=== PATIENT | female | born 1960 | race Caucasian/White ===

== ENCOUNTER 2020-06-27 21:44 | Emergency (ER) | payer OTHER, SELFPAY ==
--- NOTE | ~2020-06-27 | XR_ITS ---
EXAMINATION: LEFT ANKLE LEFT KNEE CLINICAL INFORMATION: Pain and bruising and medial malleolus COMPARISON: None TECHNIQUE: 3 views left ankle, 4 views left knee FINDINGS: Ankle: There is some mild soft tissue swelling at the medial malleolus. On the AP view, there is a lucency which appears to run through the malleolus and a horizontal fashion. A cortical break is not seen en face, highly suspect of a fracture. If the patient is symptomatic in this area, CT scan could be used due to confirm this. No other questionable fractures are seen. Left knee: No fracture is seen. An anterolisthesis is noted superior patellar insertion site. No joint effusion is seen. XR/XR knee LT 4V IMPRESSION: Question of fracture of medial malleolus. CT scan of the ankle could be performed to confirm this.
--- NOTE | ~2020-06-27 | XR_ITS ---
EXAMINATION: LEFT ANKLE LEFT KNEE CLINICAL INFORMATION: Pain and bruising and medial malleolus COMPARISON: None TECHNIQUE: 3 views left ankle, 4 views left knee FINDINGS: Ankle: There is some mild soft tissue swelling at the medial malleolus. On the AP view, there is a lucency which appears to run through the malleolus and a horizontal fashion. A cortical break is not seen en face, highly suspect of a fracture. If the patient is symptomatic in this area, CT scan could be used due to confirm this. No other questionable fractures are seen. Left knee: No fracture is seen. An anterolisthesis is noted superior patellar insertion site. No joint effusion is seen. XR/XR ankle LT min 3V IMPRESSION: Question of fracture of medial malleolus. CT scan of the ankle could be performed to confirm this.
[2020-06-27 21:58] VITALS: BP 178/76; PULSE 100; RESP 20; TEMP 36.6; O2SAT 99; BMI 30.1
[2020-06-28] MEDS: Acetaminophen 325 MG TABLET 975 MG PO (00:03)
--- NOTE | 2020-06-28 00:04 | ED_ITS ---
HPI - Extremity Injury (Lower) General Chief Complaint: Extremity Injury, Lower Stated Complaint: Fall Time Seen by Provider: 06/27/20 23:08 Source: patient Mode of arrival: ambulatory History of Present Illness HPI Narrative: This is a 60-year-old female who states that she ?missed a step? resulting in what sounds like an eversion injury to the left ankle and striking her left knee with a fall not associated with head strike or loss of consciousness. Patient denies any numbness or tingling to the toes but states that when she attempts to move the left ankle she feels it radiating up into the left lower leg. Related Data Allergies Allergy/AdvReac Type Severity Reaction Status Date / Time nitrofurantoin Allergy Unknown Verified 06/27/20 23:30 [From Macrodantin] Review of Systems Review of Systems: Pertinent positives and negatives as stated in HPI 10 point review systems is otherwise negative. [facility] Past Medical History Source: nursing notes reviewed Social History Social History Alcohol intake: never Smoked in Last 30 Days: No Use of substances other than those prescribed or required for medical reasons: No Advance Directives: No Advance Directives Information Provided: Yes Physical Exam Vital Signs: Vital Signs: Last Vital Signs Temp 97.9 F 06/27/20 21:58 Pulse 100 06/27/20 21:58 Resp 20 06/27/20 21:58 BP 178/76 H 06/27/20 21:58 Pulse Ox 99 06/27/20 21:58 Body Mass Index 30.1 VITAL SIGNS: Reviewed. GENERAL: Well developed, well nourished, in no acute distress. OROPHARYNX: no oral lesions noted, posterior pharynx clear NECK: Supple, no adenopathy LUNGS: Normal breath sounds. No adventitious sounds or accessory muscle use. SpO2<99> CARDIOVASCULAR: Regular rate and rhythm without noted murmurs, no JVD or lower extremity edema. ABDOMEN: Soft, non-tender, non-distended with bowel sounds. No rigidity. No g uarding. No palpable masses or hernias noted LEFT LOWER EXTREMITY: THERE IS A NOTED ECCHYMOTIC SITES SEE THE LATERAL ASPECT OF THE LEFT KNEE, WELL ECCHYMOSIS WITHOUT SWELLING TO THE MEDIAL MALL EOLUS, NEGATIVE MIDFOOT TENDERNESS, CAPILLARY REFILL LESS THAN 3 SECONDS, OTHERWISE NEUROVASCULARLY INTACT. THERE IS NO ANTERIOR TIBIAL PAIN ON PALPATION AND NO CALCANEAL PAIN ON PALPATION, THE LEFT KNEE IS WITHOUT SWELLING AND RANGE OF MOTION IS INTACT. SKIN: Inspection of the skin reveals no rashes NEUROLOGIC: Alert and oriented x 4. Course Course Course Narrative: This is a 60-year-old female with history and clinical presentation suggestive of left ankle fracture but doubt acute knee injury other than contusion. On review imaging there is evidence medial malleolus fracture and left knee imaging is without acute findings. Patient was provided with combination analgesics and orthopedic service was consulted. I discussed case with orthopedics who agrees with patient being placed in a walking boot as well as crutch training with a stipulation of touch toe only and patient will follow-up in the orthopedic office by calling them tomorrow morning. Discharge Plan Discharge Clinical Impression: Fracture of medial malleolus Qualifiers: Encounter type: initial encounter Fracture type: closed Fracture alignment: nondisplaced Laterality: left Qualified Code(s): S82.55XA - Nondisplaced fracture of medial malleolus of left tibia, initial encounter for closed fracture Patient Disposition: Home, Self-Care Instructions: Ankle Fracture (ED), Crutch Instructions (ED), Walking Boot (ED) Additional Instructions: 1. Tylenol 1000 mg, orally, every 6 hours as needed for pain control. Do not exceed 4000 mg within 24 hours. 2. Ibuprofen 400 mg, orally with milk or food, every 6 hours as needed for pain control. 3. Application of ice to unexposed skin, 10-15 minutes, 3 to 4 times a day. 4. Must use crutches for ambulation and only toe-touch weight to the left foot. 5. You have been provided with a referral as listed below please call the orth opedic office in the morning. Return to the emergency department if you experience any acute worsening of your symptoms. Referrals: Michael Olvera MD [Primary Care Provider] - 2 days (Diagnosed with left medial malleolus fracture and discharged for follow-up with Orthopedics with a walking boot and crutches.) Helga Acevedo MD [Physician] - 2 days (Please evaluate patient with left medial malleolus fracture, closed/nondisplaced. Patient was discharged from ER with walking boot and crutches as discussed with orthopedic PA.)
[2020-06-28 02:00] VITALS: BP 153/82; PULSE 87; RESP 18; O2SAT 98
== END 2020-06-28 03:43 | disposition home or self-care (01) ==
PROVIDERS: Emergency Provider Student in an Organized Health Care Education/Training Program; PCP Internal Medicine
DX: S82.55XA Nondisplaced fracture of medial malleolus of left tibia, initial encounter for closed fracture (principal); W10.8XXA Fall (on) (from) other stairs and steps, initial encounter; Y93.89 Activity, other specified; Y92.018 Other place in single-family (private) house as the place of occurrence of the external cause; Y99.9 Unspecified external cause status
CPT/HCPCS: 73564; 73610; 99283; 99284

== ENCOUNTER → 2020-06-29 08:03 | Outpatient (BNVA) | payer OTHER, SELFPAY | PROVIDERS: PCP Internal Medicine; Visit Provider Physician Assistant ==

== ENCOUNTER 2020-07-24 08:13 | Outpatient (REF) | payer OTHER, SELFPAY ==
--- NOTE | ~2020-07-24 | XR_ITS ---
EXAMINATION: XR ANKLE, LEFT CLINICAL INFORMATION: Medial malleolus fracture COMPARISON: Radiographs 06/27/2020 TECHNIQUE: AP, lateral, and mortise views of the left ankle. FINDINGS: A presumed fracture of the medial malleolus is less conspicuous. Subtle callus formation is present on the oblique view. No new abnormality. The ankle mortise is preserved. XR/XR ankle LT min 3V IMPRESSION: Probable nondisplaced fracture of the medial malleolus, less conspicuous than the previous study. No new abnormality.
== END 2020-07-24 08:14 | disposition home or self-care (01) ==
LOC: HO.HOSX 08:13
PROVIDERS: Visit Provider Physician Assistant
DX: S82.52XD Displaced fracture of medial malleolus of left tibia, subsequent encounter for closed fracture with routine healing (principal)
CPT/HCPCS: 73610

== ENCOUNTER → 2020-09-04 08:47 | Outpatient (BNVA) | payer OTHER, SELFPAY | PROVIDERS: Visit Provider Physician Assistant ==

== ENCOUNTER 2020-09-25 10:00 | Outpatient (RCR) | payer OTHER, SELFPAY ==
--- NOTE | 2020-09-25 09:43 | MHC.PT.EP ---
[facility] [place] Office [place] Office [place] Office [address] [phone] F: [phone] F: [phone] F: [phone] F: [phone] Physical Therapy Plan of Care Date of Evaluation: Date of Surgery: Diagnosis: displaced fracture of L medial malleolus of tibia, Assessment: Pt is a 60 y/o female referred to PT for eval and treat of non operative displaced fracture of L medial malleolus of tibia resulting in decreased tolerance for standing and walking for duration, negotiating stairs and curbs, as well as performing heavy HH chores secondary to decreased L ankle ROM, decreased B hip and L ankle strength, gait abnormality, Fx healing process and pain. Pt is deemed an appropriate candidate to receive skilled PT services to address her physical limitations in order to improve her functional ability. Frequency and Duration: The patient will be seen 2 x / wk x 5 wks. Short Term Goals: Improve baseline pain to < 4/10; initial 6/10. Initiate HEP with evidence of compliance. [facility] Goals: Negotiates 1 fl of stairs with reciprocal fashion. I with HEP. Pt will be able to walk 1 mile with at most a little bit of difficulty. Treatment Plan: Modalities to reduce pain, spasms and effusion. Manual therapy to restore motion and function. Therapeutic exercise to improve strength and flexibility. Neuromuscular re-education for posture and balance. Therapeutic activities to return to functional activities of daily living. Electronically signed by: Calvin Solitario PT. Please sign and return to therapist. Thank you for your referral.
--- NOTE | 2020-10-04 17:16 | MHC.PT.DC ---
[facility] [place] Office [place] Office [place] Office [address] Marielle Chen [address] [facility] [phone] F: [phone] F: [phone] F: [phone] F: [phone] Physical Therapy Discharge Report Diagnosis: displaced fracture of L medial malleolus of tibia, Date of Surgery: Date of Evaluation: 09/19/20 Date of Discharge: Treatments to Date: 2 Cancellations to Date: No Shows to Date: Discharge Status: Patient Elected to Stop Recommend MD Follow-up Discharge Summary: Pt called to inform PT she suffered a ruptured L Achilles tendon while in PT for L ankle Fx. Electronically signed by: Calvin Solitario PT. Please sign and return to therapist. Thank you for your referral.
== END 2020-10-04 17:28 | disposition home or self-care (01) ==
LOC: HO.PTCHIC 10:00
PROVIDERS: PCP Internal Medicine; Visit Provider Physician Assistant
DX: S82.52XA Displaced fracture of medial malleolus of left tibia, initial encounter for closed fracture (principal)
CPT/HCPCS: 97110; 97140; 97161

== ENCOUNTER → 2020-09-28 13:26 | Outpatient (BNVA) | payer OTHER, SELFPAY | PROVIDERS: PCP Internal Medicine; Visit Provider Physician Assistant ==

== ENCOUNTER 2020-10-04 06:06 | Day surgery (SDC) | payer OTHER, SELFPAY ==
--- NOTE | 2020-10-03 12:02 | P.CONAN_ITS ---
Documented by User: Caitlin Majano 10/03/20 12:02 HPI - Anesthesia Eval Consult details Narrative: 60yo F for Left Achilles Tendon Repair PMFSH Active Problems Active Problems: All Active Problems (Updated 10/03/20 @ 09:46 by Caitlin Majano) Achilles tendon rupture (Acute) Fracture of ankle, medial malleolus, left, closed (Acute) Ankle fracture, lateral malleolus, closed (Acute) Past Medical History Medical History (Updated 10/03/20 @ 09:46 by Caitlin Majano) Asthma Chronic rhinitis Depression Emphysema lung Hypercholesteremia Pulmonary nodules Snoring TMJ (temporomandibular joint disorder) Surgical History Surgical History (Updated 10/03/20 @ 09:46 by Caitlin Majano) H/O breast biopsy H/O colonoscopy H/O sinus surgery History of elbow surgery History of shoulder surgery Previous section Social History Social History Alcohol intake: never Patient Tobacco Use Status: Current everyday Tobacco user Tobacco use type: Cigarette Cigarette Packs Per Day: 0.5 Cigarettes Per Day: 10.0 Smoked in Last 30 Days: Yes Use of substances other than those prescribed or required for medical reasons: Yes Are you DNR?: No Advance Directives: Yes Advance Directives Information Provided: Yes Advance Directives on File: No Advance Directives Date on File: 10/04/20 Recently lost weight without trying: No Nutrition Risks: No Nutritional Risk Current occupational status: employed Current occupation: works at [employer] and is standing for most of the time Meds Allergies Allergy/AdvReac Type Severity Reaction Status Date / Time nitrofurantoin Allergy Unknown Verified 09/28/20 13:43 [From Macrodantin] Home Medications Medication Instructions Recorded Confirmed Last Taken Type albuterol sulfate 2 mg tablet 2 mg PO Q8H 06/29/20 Unknown History budesonide-formoterol HFA 80 2 puff INHALATION BID 06/29/20 Unknown History mcg-4.5 mcg/actuation aerosol inhaler bupropion HCl 100 mg tablet,12 hr 100 mg PO DAILY 06/29/20 Unknown History sustained-release cetirizine 1 mg/mL oral solution 5 mg PO DAILY 06/29/20 Unknown History dupilumab 300 mg/2 mL subcutaneous 300 mg SUBCUT Q2W 06/29/20 Unknown History pen injector fluoxetine 10 mg capsule 10 mg PO DAILY 06/29/20 Unknown History fluticasone furoate 27.5 1 spray INTRANASAL DAILY 06/29/20 Unknown History mcg/actuation nasal spray,suspension lisinopril 2.5 mg tablet 2.5 mg PO DAILY 07/24/20 Unknown History albuterol sulfate INHALATION 10/04/20 10/04/20 History Exam Exam Date and Time: October 03, 2020 1202 Assessment and Plan Assessment Anesthesia Assessment: Chart Reviewed Documented by User: Helene Sky 10/04/20 07:04 [facility] Past Medical History Medical History (Updated 10/03/20 @ 09:46 by Caitlin Majano) Asthma Chronic rhinitis Depression Emphysema lung Hypercholesteremia Pulmonary nodules Snoring TMJ (temporomandibular joint disorder) Surgical History Surgical History (Updated 10/03/20 @ 09:46 by Caitlin Majano) H/O breast biopsy H/O colonoscopy H/O sinus surgery History of elbow surgery History of shoulder surgery Previous section Social History Social History Alcohol intake: never Patient Tobacco Use Status: Current everyday Tobacco user Tobacco use type: Cigarette Cigarette Packs Per Day: 0.5 Cigarettes Per Day: 10.0 Smoked in Last 30 Days: Yes Use of substances other than those prescribed or required for medical reasons: Yes Are you DNR?: No Advance Directives: Yes Advance Directives Information Provided: Yes Advance Directives on File: No Advance Directives Date on File: 10/04/20 Recently lost weight without trying: No Nutrition Risks: No Nutritional Risk Current occupational status: employed Current occupation: works at [employer] and is standing for most of the time Meds Allergies Allergy/AdvReac Type Severity Reaction Status Date / Time nitrofurantoin Allergy Unknown Verified 09/28/20 13:43 [From Macrodantin] Home Medications Medication Instructions Recorded Confirmed Last Taken Type albuterol sulfate 2 mg tablet 2 mg PO Q8H 06/29/20 Unknown History budesonide-formoterol HFA 80 2 puff INHALATION BID 06/29/20 Unknown History mcg-4.5 mcg/actuation aerosol inhaler bupropion HCl 100 mg tablet,12 hr 100 mg PO DAILY 06/29/20 Unknown History sustained-release cetirizine 1 mg/mL oral solution 5 mg PO DAILY 06/29/20 Unknown History dupilumab 300 mg/2 mL subcutaneous 300 mg SUBCUT Q2W 06/29/20 Unknown History pen injector fluoxetine 10 mg capsule 10 mg PO DAILY 06/29/20 Unknown History fluticasone furoate 27.5 1 spray INTRANASAL DAILY 06/29/20 Unknown History mcg/actuation nasal spray,suspension lisinopril 2.5 mg tablet 2.5 mg PO DAILY 07/24/20 Unknown History albuterol sulfate INHALATION 10/04/20 10/04/20 History Exam Airway Mallampati Class: II TM Dist: >3cm Neck ROM: Full
[2020-10-04] VITALS (7 sets, daily range): BP systolic 119–162; BP diastolic 60–85; PULSE 98–109; RESP 16; TEMP 36.1–36.8; O2SAT 97–100; BMI 31.6
[2020-10-04] MEDS: Lactated Ringers 1,000 ML 100 ML IVCONT (06:40)
--- NOTE | 2020-10-04 08:00 | MHC.SHP ---
Pre-Procedural Eval Section A The patient is an INPATIENT: No Changes since office visit: No Cold of Flu in the past 2 weeks, No New Medical Problems, No Changes in Medication and No Patient answered all questions The History & Physical has been completed within 30 days and I have reviewed it.: Yes Section B Chief Complaint: Injury of Achilles Tendon Allergies: Allergies Allergy/AdvReac Type Severity Reaction Status Date / Time nitrofurantoin Allergy Unknown Verified 09/28/20 13:43 [From Macrodantin] Plan I have reviewed the history and physical and performed a pertinent physical examination on my patient. No changes have occurred unless specified.
--- NOTE | 2020-10-04 09:44 | P.OP_ITS ---
Operative Note Operative Note Date of Service: 10/04/20 Narrative: OPERATIVE PROCEDURE NOTE SURGEON: Dr. Solomon (Sylvia) Instrum CROP OR GRAIN FARMWORKER: Cayla See PAC PREOP DIAGNOSIS: Left Achilles tendon rupture POSTOP DIAGNOSIS: Same OPERATIVE PROCEDURE: Operative fixation left Achilles tendon CLINICAL NOTE: This lady comes in today in regards to her left Achilles tendon. She had actually had a fracture of her lateral malleolus earlier in the year. She subsequently was being treated for that. She indicated that approximately 2 weeks ago she felt a pop. She has had some difficulty walking since then. She presented the office where after examination she was noted to have the above injury. After explaining the risks benefits and alternatives and answering all her questions it was mutually agreed upon to carry following procedure OPERATIVE PROCEDURE Under regional and general anesthetic the patient was initially placed supine and then prone on the operating table. A pneumatic tourniquet cuff was placed around the upper left thigh and inflated to 300 mm of mercury at the beginning of the case. The left foot and ankle were then prepped and draped in standard fashion. Surgical time-out was then performed. Patient was identified. Procedure confirmed. Medical and allergy history was reviewed. Preoperative antibiotics were given. Standard DVT prophylaxis was in place. All other items were discussed and agreed upon. Standard approach to the Achilles tendon centered over the deficit was made. This was taken down through the subcutaneous tissues. It became obvious immediately that this was more of a long-term tear as opposed to within the last week or 2. There was dense scar tissue that had to be released from the cutaneous tissue. It also had to be released both medially and laterally as well as underneath the tendon. There was scarring along the most anterior portion. This had to be elevated and divided. The appearance of the proximal portion of the tear did not have the usual course tails appearance. It was stands. Thickened. All of which indicated that this was a longer term rupture. Once the tendon was completely mobilized both proximally and distally, a 2. FiberWire was weaved in a madison style with 2 tails coming distally towards proximal segment. To note it was very dense trying to put the needle through the tissue. Similarly on the distal segment a 2. FiberWire was weaved in a madison style fashion with 2 tails going proximally. The matching ends were then tied together brain 2 segments into approximation. This allowed when performing Dooley test that foot would plantar flex following this the repair was enhanced using interrupted #1 Dexon interrupted sutures. This point with th e repair complete the resting posture of the foot was just short of neutral. It could be dorsiflexed to neutral without significant tension therefore proceeded. Wound was irrigated. The skin was approximated using 3-0 Dexon. The skin was closed with subcuticular V lock sutures. Dermabond, Steri-Strips and a sterile dressing were then applied. The foot was then placed in a below knee cast with the foot in resting slightly plantar flexed position. Patient's anesthesia was then reversed. They were rolled supine onto the her back on their own bed and then taken to the recovery room in good condition. Tourniquet was let down a total tourniquet time of 46 minutes. There was no intraoperative blood loss. There were no complications
== END 2020-10-04 11:04 | disposition home or self-care (01) ==
PROVIDERS: PCP Internal Medicine; Visit Provider Orthopaedic Surgery
PROC: (CPT 27650; principal; 2020-10-04 07:30)
DX: S86.012A Strain of left Achilles tendon, initial encounter (principal); X58.XXXA Exposure to other specified factors, initial encounter; Y93.89 Activity, other specified; Y92.090 Kitchen in other non-institutional residence as the place of occurrence of the external cause; Y99.8 Other external cause status; J45.909 Unspecified asthma, uncomplicated; J43.9 Emphysema, unspecified; R91.8 Other nonspecific abnormal finding of lung field; F32.9 Major depressive disorder, single episode, unspecified; F17.210 Nicotine dependence, cigarettes, uncomplicated; Z79.899 Other long term (current) drug therapy
CPT/HCPCS: 27650; J0690; J1100; J1885; J2250; J2370; J2405; J3010

== ENCOUNTER → 2020-10-08 13:36 | Outpatient (BNVA) | payer OTHER, SELFPAY | PROVIDERS: PCP Internal Medicine; Visit Provider Physician Assistant ==

== ENCOUNTER → 2020-10-17 09:07 | Outpatient (BNVA) | payer OTHER, SELFPAY | PROVIDERS: Visit Provider Physician Assistant | DX: Z98.890 Other specified postprocedural states (principal) | CPT/HCPCS: 29405 ==

== ENCOUNTER → 2020-11-06 09:47 | Outpatient (BNVA) | payer OTHER, SELFPAY | PROVIDERS: Visit Provider Physician Assistant | DX: S86.012A Strain of left Achilles tendon, initial encounter (principal) | CPT/HCPCS: 29405 ==

== ENCOUNTER → 2020-11-14 08:39 | Outpatient (BNVA) | payer OTHER, SELFPAY | PROVIDERS: Visit Provider Orthopaedic Surgery ==

== ENCOUNTER → 2020-12-07 11:28 | Outpatient (BNVA) | payer OTHER, SELFPAY | PROVIDERS: Visit Provider Physician Assistant ==

== ENCOUNTER → 2020-12-26 08:36 | Outpatient (BNVA) | payer OTHER, SELFPAY | PROVIDERS: PCP Internal Medicine; Visit Provider Orthopaedic Surgery ==

== ENCOUNTER 2021-01-30 08:00 | Outpatient (RCR) | payer OTHER, SELFPAY ==
[2020-12-31 09:11] VITALS: BP 160/110; PULSE 84
== END 2021-07-08 09:11 | disposition home or self-care (01) ==
LOC: HO.PTCHIC 08:00
PROVIDERS: PCP Internal Medicine; Visit Provider Physician Assistant
DX: M54.32 Sciatica, left side (principal)
CPT/HCPCS: 97014; 97110; 97140; 97161

== ENCOUNTER → 2021-02-06 13:19 | Outpatient (BNVA) | payer OTHER, SELFPAY | PROVIDERS: PCP Internal Medicine; Visit Provider Physician Assistant ==

== ENCOUNTER 2021-02-15 08:00 | Outpatient (RCR) | payer OTHER, SELFPAY ==
--- NOTE | 2020-12-24 07:49 | MHC.PT.EP ---
[facility] [place] Office [place] Office [place] Office [address]ielle Chen [address] [phone] F: [phone] F: [phone] F: [phone] F: [phone] Physical Therapy Plan of Care Date of Evaluation: Date of Surgery: 10/04/20 Diagnosis: L Achilles tendon repair Assessment: Pt is a 60 y/o female who presents to PT with scrip for other specified postprocedural states, Achilles' tendon repair DOS: 10/22; with special instructions for no ankle ROM, no heel stretching, and to trial iontopheresis who presents with L LE and foot dysfunction following L AT repair and immobilization resulting in decreased L global toe ROM and strength as well as TTP of plantar/ heel tissue, decreased sensation of 4th and 5th digits, and pain. Pt is deemed an appropriate candidate to receive skilled PT services to address her physical impairments in order to improve Pts functional ability for normalized foot mechanics once able to bear weight. Frequency and Duration: The patient will be seen 2 x / wk x 5 wks. Short Term Goals: MD to clear Pt for assessment and management of AT repair; at this time toe function and foot Sx management. Improve R foot pain from 5- 9/10 depending on activity to < 3/10. Medical Director Occupational Health Goals: Pt will achieve > 44 degrees Great toe PROM extension in order to perform appropriate terminal stance. (initial 2 degrees with plantar discomfort/ pain). Improve Great toe flexion MMT to > 4/5, initial: 3-/5. I with gentle HEP to promote toe function. Treatment Plan: Modalities to reduce pain, spasms and effusion. Manual therapy to restore motion and function. Therapeutic exercise to improve strength and flexibility. Neuromuscular re-education for posture and balance. Therapeutic activities to return to functional activities of daily living. Electronically signed by: malissa diehl PT Please sign and return to therapist. Thank you for your referral.
--- NOTE | 2021-07-08 09:26 | MHC.PT.DC ---
[facility] [place] Office [place] Office [place] Office [address] Marielle Chen [address] [phone] F: [phone] F: [phone] F: [phone] F: [phone] Physical Therapy Discharge Report Diagnosis: L Achilles tendon repair Date of Surgery: 10/04/20 Date of Evaluation: 12/10/20 Date of Discharge: 04/03/21 Treatments to Date: 10 Cancellations to Date: No Shows to Date: Discharge Status: Improved Function Independent with HEP Patient Elected to Stop Discharge Summary: Malena had been an active participant in her therapy in the clinic with inconsistent home program compliance and requested DC from therapy citing co-pay as a limiting factor and has been attending too many apts as she had also been in PT for L side sciatica concurrently and has also been managed for uncontrolled BP. Though she was strongly encouraged to continue to progress her function in therapy she did request DC and her chart was left open > 1 month in case Pt wished to continue therapy for her AT. Electronically signed by: Calvin Solitario PT. Please sign and return to therapist. Thank you for your referral.
== END 2021-07-08 09:27 | disposition home or self-care (01) ==
LOC: HO.PTCHIC 08:00
PROVIDERS: PCP Internal Medicine; Visit Provider Physician Assistant
DX: Z98.890 Other specified postprocedural states (principal)
CPT/HCPCS: 97014; 97033; 97110; 97112; 97116; 97140; 97161

== ENCOUNTER → 2021-04-03 13:09 | Outpatient (BNVA) | payer OTHER, SELFPAY | PROVIDERS: Visit Provider Physician Assistant ==